=== PATIENT | male | born 1995 | race Caucasian/White ===

== ENCOUNTER 2016-11-24 00:40 | Emergency (ER) | payer BC ==
[2016-11-24 00:52] VITALS: BP 129/88
[2016-11-24] MEDS ORDERED: Lidocaine 2% EPI 1:200000 MPF* 20 ML VIAL ONE (04:07)
[2016-11-24] MEDS ORDERED: Cephalexin CAP* 500 MG PO ONE (04:44)
--- NOTE | 2016-11-24 08:08 | RAD ---
INDICATION: Laceration evaluate for foreign body. TECHNIQUE: 2 views of the right hand were obtained. FINDINGS: There is a soft tissue defect adjacent to the middle phalanx of the third finger. On the lateral view there is a small curvilinear area of increased density projecting over the soft tissues anterior to the middle phalanx possibly representing a foreign body. No fracture is seen. Joint spaces appear maintained. IMPRESSION: POSSIBLE FOREIGN BODY IN THE SOFT TISSUES ANTERIOR TO THE MIDDLE PHALANX OF THE THIRD FINGER.
--- NOTE | 2016-11-25 00:41 | ED ---
Rene Mehta Angela, scribed for Lisa Haile MD on 11/24/16 at 0240 . Laceration/Wound HPI - HPI Summary HPI Summary: This pt is a 21 y/o male presenting to [facility] c/o laceration on right third digit today. Pt reports he was cleaning after his roommates when he grabbed a piece of broken glass. Pt denies any other injuries, falls or LOC. He denies headache, blurry vision, LE swelling, rash, bruises, abd pain, back pain, nausea , vomiting. He states he had surgery 11 days ago on his left scaphoid for a fracture sustained while playing lacrosse. Pt is right-handed. Pt denies tobacco, alcohol, and drug use. - History of Current Complaint Stated Complaint: RT MIDDLE FINGER LAC Time Seen by Provider: 11/24/16 02:30 Hx Obtained From: Patient Onset/Duration: Lasting Hours Aggravating: Nothing Alleviating: Compression Pain Intensity: 0 Associated Signs & Symptoms: Pain Related Hx: Dominant Hand (Right) - Allergy/Home Medications Allergies/Adverse Reactions: Allergies Allergy/AdvReac Type Severity Reaction Status Date / Time No Known Allergies Allergy Verified 11/24/16 00:52 PMH/Surg Hx/FS Hx/Imm Hx Endocrine/Hematology History: Denies: Hx Diabetes, Hx Thyroid Disease Cardiovascular History: Denies: Hx Congestive Heart Failure, Hx Deep Vein Thrombosis, Hx Hypertension , Hx Myocardial Infarction, Hx Pacemaker/ICD Respiratory History: Denies: Hx Asthma, Hx Chronic Obstructive Pulmonary Disease (COPD), Hx Lung Cancer, Hx Pneumonia, Hx Pulmonary Embolism GI History: Denies: Hx Gall Bladder Disease, Hx Gastrointestinal Bleed, Hx Ulcer, Hx Urosepsis History: Denies: Hx Kidney Stones, Hx Renal Disease Neurological History: Denies: Hx Dementia, Hx Migraine, Hx Seizures, Hx Transient Ischemic Attacks (TIA) Psychiatric History: Denies: Hx Anxiety, Hx Depression, Hx Schizophrenia, Hx Bipolar Disorder - Surgical History Surgery Procedure, Year, and Place: chest tube broken ribs collapsed lung. Left scaphoid surgery - Immunization History Date of Tetanus Vaccine: unknown Infectious Disease History: No Infectious Disease History: Denies: Hx Hepatitis, Hx Human Immunodeficiency Virus (HIV), Traveled Outside the [place] in Last 30 Days - Family History Known Family History: Negative: Cardiac Disease, Hypertension - Social History Alcohol Use: Rare Substance Use Type: Reports: None Smoking Status (MU): Never Smoked Tobacco Review of Systems Negative: Fever, Chills Negative: Blurred Vision Negative: Abdominal Pain, Vomiting, Nausea Negative: Edema, Other - back pain Positive: Other - laceration to the right third digit. Negative: Rash, Bruising Negative: Headache All Other Systems Reviewed And Are Negative: Yes Physical Exam Triage Information Reviewed: Yes Vital Signs On Initial Exam: Initial Vitals Temp Pulse Resp BP Pulse Ox 98.0 F 89 18 129/88 100 11/24/16 00:49 11/24/16 00:49 11/24/16 00:49 11/24/16 00:49 11/24/16 00:49 Vital Signs Reviewed: Yes Appearance: Positive: Well-Appearing, Well-Nourished Skin: Positive: Warm, Skin Color Reflects Adequate Perfusion, Dry, Other - laceration on right third digit Head/Face: Positive: Normal Head/Face Inspection Eyes: Positive: Normal ENT: Positive: Normal ENT inspection Neck: Positive: Supple, Nontender Respiratory/Lung Sounds: Positive: Clear to Auscultation, Breath Sounds Present Cardiovascular: Positive: Normal, RRR Musculoskeletal: Positive: Normal, Other - RUE: Neurological: Positive: Normal, Sensory/Motor Intact, Alert, Oriented to Person Place, Time Psychiatric: Positive: Normal - Lewis Coma Scale Coma Scale Total: 15 Procedures - Laceration/Wound Repair 1 Location: upper extremity - rigth third digit Description: Linear Anesthesia: 1.0%, Epi - for a digital block Length, Depth and Shape: 12 stitches Laceration/Wound Explored: clean, no foreign body removed Diagnostics - Vital Signs Vital Signs Temp Pulse Resp BP Pulse Ox 11/24/16 00:49 98.0 F 89 18 129/88 100 - Laboratory Lab Statement: Any lab studies that have been ordered have been reviewed, and results considered in the medical decision making process. - Radiology Right hand XR Xray Interpretation: No Acute Changes - No foreign body or fractures. Radiology Interpretation Completed By: ED Physician Laceration Repair Course/Dx - Course Assessment/Plan: Pt is a 21 y/o right-handed male who presents with laceration on right third digit today. Right hand XR shows no foreign body or fractures. I performed a laceration repair on his right third digit. I placed 12 sutures, uninterrumpted, using 1% lidocaine with epi for a digital block. Pt will be discharged with Keflex. He is instructed to return to the ED in 1 week for suture removal. Pt is also instructed to return to the ED for any signs of infection. - Clinical Impression Provider Diagnoses: Laceration of finger Discharge - Discharge Plan Condition: Stable Disposition: HOME Prescriptions: Cephalexin CAP* [Keflex CAP*] 500 mg PO TID #21 cap Patient Education Materials: Finger Laceration (ED) Forms: *Physical Education Release Referrals: [facility] [Primary Care Provider] - Additional Instructions: Take tylenol and motrin for pain. return in 1 week for suture removal. take the keflex as instructed. return if any evidence of infection including severe pain, redness, pain coming out of wound. keep wound clean and dry. you may apply antibiotic ointment to the wound twice a day for the next several days. to reduce scarring, apply vitamin e oil and sunscreen for 2 years AFTER the sutures come out and the wound is healed. The documentation as recorded by the Rene roy Angela accurately reflects the service I personally performed and the decisions made by , Lisa Haile MD.
== END 2016-11-24 04:58 | disposition home or self-care (01) ==
LOC: ED 00:40
DX: S61.212A Laceration without foreign body of right middle finger without damage to nail, initial encounter (principal); W25.XXXA Contact with sharp glass, initial encounter; Y93.9 Activity, unspecified; Y92.9 Unspecified place or not applicable; Y99.9 Unspecified external cause status
CPT/HCPCS: 12002; 99281; A9270-GY